=== PATIENT | male | born 2000 | race Caucasian/White ===

== ENCOUNTER 2021-08-29 23:43 | Emergency (ER) | payer MEDICAID, OTHER ==
[~2021-08-29] VITALS: Ht 180 cm; Wt 66.7 kg
--- NOTE | 2021-08-30 00:57 | ED Lower Extremity ---
General Chief Complaint: Lower Extremity Stated Complaint: LEFT KNEE PAIN Nursing Triage Note: c/o left medial/lower/anterior knee pain after feeling a "pop" while working out approx. 2200 Source: patient Exam Limitations: no limitations History of Present Illness Date Seen by Provider: August 30, 2021 Time Seen by Provider: 00:25 Initial Comments Patient presents ER by private conveyance with chief complaint that about an hour or 2 prior to arrival he was doing some squats and heard a popping sensation in his left knee and is now unable to extend his knee fully. He says this happened similar a few weeks ago but not near as severe and stopped hurting shortly after it started. He does not have any history of trauma to the knee, fractures or surgeries on his knees. He does not follow routinely with a doctor. Allergies and Home Medications Allergies Coded Allergies: midazolam (Verified Allergy, Unknown, 08/30/21) Patient Home Medication List Home Medication List Reviewed: Yes Review of Systems Constitutional: No chills, No diaphoresis EENTM: No ear discharge, No ear pain Respiratory: No cough, No short of breath Cardiovascular: No edema, No palpitations Gastrointestinal: No abdominal pain, No constipation, No diarrhea Genitourinary: No discharge, No dysuria All Other Systems Reviewed Negative Unless Noted: Yes Past Swnqzjh-Xziczl-Hqfqkf Hx Patient Social History Tobacco Use?: Yes Substance use?: No Alcohol Use?: No Pt feels they are or have been: No Past Medical History Surgery/Hospitalization HX: bmt, nasal, bleeding d/o Physical Exam Vital Signs Vital Signs - First Documented 08/29/21 23:53 Temp 36.5 Pulse 75 Resp 16 B/P (MAP) 132/87 (102) Pulse Ox 98 O2 Delivery Room Air Capillary Refill : Less Than 3 Seconds Height, Weight, BMI Height: '" Weight: lbs. oz. kg; 20.00 BMI Method: General Appearance: WD/WN, no apparent distress HEENT: PERRL/EOMI, pharynx normal Cardiovascular: normal peripheral pulses, regular rate, rhythm Respiratory: no respiratory distress, no accessory muscle use Knees: right knee non-tender; bilateral knee normal inspection; right knee normal range of motion, right knee no evidence of injury; left knee bone tenderness (Anterior medial tibial plateau tender to palpation), left knee other (Lacks about 20 degrees of extension in the left knee. No ecchymoses erythema or abrasion. No pain medial or lateral collateral ligaments.) Ankles: bilateral ankle non-tender, bilateral ankle normal inspection Neurologic/Tendon: normal sensation, normal motor functions, responds to pain Neurologic/Psychiatric: no motor/sensory deficits, alert, normal mood/affect, oriented x 3 Skin: normal color, warm/dry Progress/Results/Core Measures Results/Orders My Orders Orders - STACY GUTIÉRREZ Knee, Left, 3 Views (08/30/21 00:50) Vital Signs/I&O 08/29/21 08/30/21 23:53 01:39 Temp 36.5 36.3 Pulse 75 71 Resp 16 16 B/P (MAP) 132/87 (102) 129/78 Pulse Ox 98 99 O2 Delivery Room Air Room Air Blood Pressure Mean: 102 Progress Progress Note : Time: 00:54 Progress Note Plain film of the knee. He declined thing for pain. We will wrap his knee with her Son wrap and give him some ice. Diagnostic Imaging Diagonstic Imaging: Xray Plain Films/CT/US/NM/MRI: knee Comments No acute osseous abnormality. [facility] [place] NAME: YARY BASS MED REC#: [id number] PT STATUS: DEP ER : 2000 PHYSICIAN: STACY GUTIÉRREZ MD ADMIT DATE: 08/29/21/ER Signed Date of Exam:08/30/21 KNEE, LEFT, 3 VIEWS Indication: Left knee pain. Comparison: None. Discussion: Three views of left knee were obtained. No effusion. No fracture or dislocation. No significant degenerative disease. Alignment is anatomic. Soft tissues are unremarkable. Impression: 1. Negative left knee. Dictated by: Dictated on workstation # [id number] Dict: 08/30/21 0652 Trans: 08/30/21 1256 [facility] [id number] Interpreted by: BHUMIKA RAMÍREZ MD Electronically signed by: BHUMIKA RAMÍREZ MD 08/30/21 1256 Reviewed: Reviewed by Me Departure Impression Primary Impression: Left anterior knee pain Disposition: HOME, SELF-CARE Condition: Stable Departure-Patient Inst. Decision time for Depature: 01:34 Referrals: SALVATORE MOORE DO (PCP/Family) Primary Care Physician TAMMI RODRIGUEZ MD Patient Instructions: Knee Pain (DC) Add. Discharge Instructions: Tylenol 1000 mg every 8 hours as needed for pain. Ibuprofen 800 mg every 8 hours as needed for pain. Keep the knee wrapped with an Son wrap to reduce swelling and pain. Ice 20 minutes on every 2 hours for the first 2 to 3 days to reduce swelling and pain. Elevate your knee above the level of your heart while at rest to reduce swelling and pain. Use the crutches and weightbearing on your left knee as tolerated for the first 1 to 2 weeks. Follow-up with an orthopedic surgeon in the next week for reexamination of your left knee injury. All discharge instructions reviewed with patient and/or family. Voiced understanding. Work/School Note: Work Release Form Date Seen in the Emergency Department: August 30, 2021 Return to Work: August 31, 2021 Restrictions: Need Release from Doctor Other Restrictions Listed Below: May use crutches for left knee until 09/14/2021 Copy Copies To 1: TAMMI RODRIGUEZ MD, TITUS J August 30, 2021 00:57
[2021-08-30 01:39] VITALS: BP 129/78
--- NOTE | 2021-08-30 06:54 | Diagnostic Imaging Report ---
Indication: Left knee pain. Comparison: None. Discussion: Three views of left knee were obtained. No effusion. No fracture or dislocation. No significant degenerative disease. Alignment is anatomic. Soft tissues are unremarkable. Impression: 1. Negative left knee. Dictated by: Dictated on workstation # [id number]
== END 2021-08-30 01:45 | disposition home or self-care (01) ==
LOC: EDUNIT# 23:43 → ER 23:47
DX: M25.562 Pain in left knee (principal); X50.1XXA Overexertion from prolonged static or awkward postures, initial encounter; Y93.B9 Activity, other involving muscle strengthening exercises
CPT/HCPCS: 73562